=== PATIENT | male | born 1980 | race Caucasian/White ===

== ENCOUNTER 2019-02-11 10:16 | Emergency (ER) | payer OTHER ==
[~2019-02-11] VITALS: Ht 167.6 cm; Wt 76.2 kg
[2019-02-11 10:31] VITALS: BP 134/84
--- NOTE | 2019-02-11 10:38 | NUR ---
PT AMBULATED TO ER BED 04
--- NOTE | 2019-02-11 10:44 | NUR ---
BIB SELF. AAOX4. C/O FEVER, N/V, HEADACHE 9/10 PAIN X 1 1/2 WEEKS, NON PRODUCTIVE COUGHING TODAY. NO SOB NOTED. STEADY GAIT. PERRLA, BRISK 3 MM. EQUAL BORA STRENGTH TO UPPER AND LOWER STRENGTH. HOB UP. BED SIDE RAILS UP X1. ON LOW BED POSITION, LOCKED. ER MADE AWARE OF PT STATUS.
[2019-02-11] MEDS ORDERED: NACL 0.9% 1,000 ML IV SCH (11:03)
--- NOTE | 2019-02-11 11:03 | NUR ---
DR FARR AT BEDSIDE FOR PT EVALUATION
[2019-02-11] MEDS ORDERED: ONDANSETRON 4 MG/2 ML VIAL IVP ONE (11:05)
[2019-02-11] MEDS ORDERED: PANTOPRAZOLE 40 MG INJ VIAL IVP ONE (11:05)
--- NOTE | 2019-02-11 11:51 | NUR ---
IV 22GA RT A/C DONE BLOOD SENT TO LAB, 2 BLOD FOR C&S SENT
[2019-02-11 12:07] LABS: BASOPHILS % (AUTO) 0.2 % (0.0-2.0); EOSINOPHILS % (AUTO) 0.1 % (0.0-4.0); HEMATOCRIT 45.4 % (36-52); HEMOGLOBIN 15.9 g/dL (12.0-18.0); LYMPHOCYTES # (AUTO) 1.1 K/uL (2.0-11.5); LYMPHOCYTES % (AUTO) 21.7 % (20.5-51.1); MEAN CORPUSCULAR HEMOGLOBIN 32 pg (27-31); MEAN CORPUSCULAR HGB CONC 35 g/dL (33-37); MEAN CORPUSCULAR VOLUME 91.7 fL (80-94); MONOCYTES # (AUTO) 0.5 K/uL (0.8-1.0); MONOCYTES % (AUTO) 10.5 % (1.7-9.3); NEUTROPHILS # (AUTO) 3.3 K/uL (1.8-7.7); NEUTROPHILS % (AUTO) 67.5 % (42.2-75.2); PLATELET COUNT (AUTO) 134 K/uL (140-450); RED BLOOD CELL COUNT(AUTO) 4.95 MIL/uL (4.20-6.10); RED CELL DISTRIBUTION WIDTH 12.4 % (11.6-13.7)
[2019-02-11 12:13] LABS: APPEARANCE,URINE CLEAR (CLEAR); BILIRUBIN,URINE NEGATIVE (NEGATIVE); BLOOD, URINE NEGATIVE (NEGATIVE); COLOR,URINE YELLOW (YELLOW); LEUKOCYTE ESTERASE ,URINE NEGATIVE (NEGATIVE); NITRITE, URINE NEGATIVE (NEGATIVE); PH,URINE 7.5 (5.0-9.0); UGLUCOSE NEGATIVE (NEGATIVE)
[2019-02-11 12:16] LABS: RBC,URINE 0-5 /HPF (0-5); WBC,URINE 0-5 /HPF (0-5)
[2019-02-11] MEDS ORDERED: IBUPROFEN 800 MG TAB PO ONE (12:25)
[2019-02-11 12:43] LABS: ANION GAP 11.1 (8-16); CARBON DIOXIDE 28.9 mmol/L (21-32)
[2019-02-11 12:48] LABS: PROTHROMBIN TIME 10.5 secs (10.8-13.4)
--- NOTE | 2019-02-11 12:49 | NUR ---
PO MEDS GIVEN-NADR AT THIS TIME
[2019-02-11 12:50] LABS: TOTAL BILIRUBIN 1.1 mg/dL (0.0-1.0)
--- NOTE | 2019-02-11 13:18 | NUR ---
PT TAKEN TO CT VIA WHEEL CHAIR BY COUNTER MOLDER.
--- NOTE | 2019-02-11 13:30 | NUR ---
PT BACK TO BED VIA WHEEL CHAIR FROM CT
[2019-02-11 16:02] VITALS: BP 124/76
--- NOTE | 2019-02-11 16:02 | NUR ---
Patient discharged with v/s stable. Written and verbal after care instructions given and explained. Patient alert, oriented and verbalized understanding of instructions. Ambulatory with steady gait. All questions addressed prior to discharge. ID band removed. Patient advised to follow up with PMD. Rx of Tylenol Extra Strength given. Patient educated on indication of medication including possible reaction and side effects. Opportunity to ask questions provided and answered.
== END 2019-02-11 16:02 | disposition home or self-care (01) ==
LOC: MED 10:16
DX: R50.9 Fever, unspecified (principal); R05 Cough; R51 Headache; M54.5 Low back pain; R11.10 Vomiting, unspecified
CPT/HCPCS: 36415; 71045; 74176; 80053; 81001; 83605; 83690; 85025; 85610; 85730; 87040; 93005; 96361; 96374; 96375; 99284; C9113; J2405; J7030; Q0092